=== PATIENT | female | born 1985 | race Hispanic/Latino ===

== ENCOUNTER 2022-12-20 10:04 | Observation (INO) | payer SELFPAY ==
[2022-12-20] MEDS ORDERED: Ondansetron HCl/PF 4 MG/2 ML Vial IVP PRN (10:39)
[2022-12-20] MEDS ORDERED: Promethazine HCl 25 MG/ML VIAL IM PRN (10:39)
[2022-12-20] MEDS ORDERED: Meperidine HCl/PF 25 MG/ML VIAL SLOW IVP PRN (10:39)
[2022-12-20] MEDS ORDERED: HYDROmorphone 2 MG/ML VIAL SLOW IVP PRN (10:39)
[2022-12-20] MEDS ORDERED: PACU-Morphine 4MG/ML VIAL SLOW IVP PRN (10:39)
[2022-12-20] MEDS ORDERED: Lactated Ringer's 1,000 ML IV SCH (11:00)
[2022-12-20] MEDS ORDERED: Misoprostol 200 MCG TAB VAG PRN (11:00)
[2022-12-20] MEDS ORDERED: Midazolam HCl 2 mg/2 ml Vial ONE (11:03)
[2022-12-20] MEDS ORDERED: Ondansetron PF 4 MG/2 ML Vial ONE (11:03)
[2022-12-20] MEDS ORDERED: Lidocaine 1% PF 5 ML VIAL ONE (11:03)
[2022-12-20] MEDS ORDERED: Dexamethasone 4 mg/ml Vial ONE ×2 (11:03→11:22)
[2022-12-20] MEDS ORDERED: PROPOFOL 20 ML ONE (11:03)
[2022-12-20] MEDS ORDERED: fentaNYL 50 mcg/mL 1 mL Vial ONE (11:03)
[2022-12-20] MEDS ORDERED: Ketorolac Tromethamine 30 MG/ML VIAL ONE (11:04)
[2022-12-20] MEDS ORDERED: cefTRIAXone (ROCEPHIN) 1 GM VIAL ONE (11:17)
[2022-12-20] MEDS ORDERED: PHENYLEPHRINE-NS 100 MCG/ML 10 ML SYRINGE ONE (11:18)
[2022-12-20] MEDS ORDERED: Carboprost 250 MCG/ML AMP ONE (11:30)
[2022-12-20] MEDS ORDERED: ePHEDrine Sulfate 50 MG/10 ML VIAL ONE (11:34)
[2022-12-20 14:15] VITALS: BMI 36.1
[2022-12-20 15:02] VITALS: BP 103/70; TEMP 97.9
[2022-12-20 15:53] LABS: #Monocytes 0.1 10x3/uL (0.0-1.1); #Neutrophils 6.3 10x3/uL (1.5-8.4); %Basophils 0.1 % (0.0-2.0); %Eosinophils 0.1 % (0.0-6.0); %Lymphocytes 8.6 % (18.0-47.0); %Neutrophils 89.6 % (40.0-75.0); Hematocrit 31.6 % (34.9-44.5); Hemoglobin 10.8 g/dL (12.0-15.5); Mean Corpuscular HGB CONC 34.2 g/dL (32.0-36.0); Mean Corpuscular Hemoglobin 31.1 pg (27.0-33.0); Mean Corpuscular Volume 91.1 fl (81.6-98.3); Mean Platelet Volume 9.2 fl (7.4-10.4); Platelet Count 309 10x3/uL (150-450); Red Blood Cell (RBC) Count 3.47 10x6/uL (3.90-5.03)
[2022-12-20] MEDS ORDERED: Ibuprofen 400 MG TAB PO PRN (17:00)
[2022-12-20 17:40] LABS: Hemoglobin 10.8 g/dL (12.0-15.5)
== END 2022-12-20 19:12 | disposition home or self-care (01) ==
LOC: CSHERS 10:04 → CSHPED 13:21
PROVIDERS: ADMIT Obstetrics & Gynecology; ATTEND Obstetrics & Gynecology
PROC: 10D17ZZ Extraction of Products of Conception, Retained, Via Natural or Artificial Opening (ICD-10-PCS; principal; 2022-12-20)
DX: O02.1 Missed abortion (principal)
CPT/HCPCS: 36415; 88305; 99285; J0696; J1100; J1885; J2250; J2405; J2704; J3010; J3490